=== PATIENT | male | born 1975 | race American Indian/Alaskan Native ===

== ENCOUNTER 2018-12-12 11:47 | Emergency (ER) | payer OTHER ==
--- NOTE | 2018-12-12 12:21 | Event Note ---
ED Screening Note ED Screening Note: pt presents with a cough that began three days ago has mucus production no rhinorrhea, no sore throat +congestion no sick contacts PMHx HIV, Hep B not on antivirals, hasnt taken them in 7 months has not seen an infectious disease doctor in 5 months This initial assessment/diagnostic orders/clinical plan/treatment(s) is/are subject to change based on patients health status, clinical progression and re- assessment by fellow clinical providers in the ED. Further treatment and workup at subsequent clinical providers discretion. Patient/guardian urged not to elope from the ED as their condition may be serious if not clinically assessed and managed. Initial orders include: CXR
[2018-12-12 12:23] VITALS: BP 134/73
--- NOTE | 2018-12-12 13:07 | XRay Report ---
CHEST PA AND LATERAL VIEWS INDICATION: cough. COMPARISON: None FINDINGS: Support devices: None Heart: Normal Lungs/Pleura: No acute pulmonary or pleural findings. IMPRESSION: 1. No significant abnormality. Signer Name: Baldemar Yancey MD Signed: 12/12/2018 1:03 PM Workstation Name: [id number]
[2018-12-12] MEDS ORDERED: DECADRON IM ONE (14:06)
[2018-12-12] MEDS ORDERED: DUONEB *Not for PRN Use IH ONE (14:06)
--- NOTE | 2018-12-12 14:32 | Emergency Department Report ---
- General Chief Complaint: Upper Respiratory Infection Stated Complaint: CHEST/HEAD PAIN/COUGH Time Seen by Provider: 12/12/18 12:19 Source: patient Mode of arrival: Ambulatory Limitations: No Limitations - History of Present Illness Initial Comments: pt is a 43 yo male who presents with a cough that began three days ago. pt states he has mucus production. denies any rhinorrhea, ear pain, fever, or sore throat. endorses congestion. no sick contacts. PMHx HIV, Hep B not on antivirals, hasnt taken them in 7 months. has not seen an infectious disease doctor in 5 months. pt has a PMHx of asthma but states he has not had issues in about 3 years. he does not have an inhaler. - Related Data Previous Rx's Medication Instructions Recorded Last Taken Type Ciprofloxacin HCl [Cipro] 500 mg PO BID #14 tablet 04/11/18 Unknown Rx Loperamide HCl [Imodium A-D] 2 mg PO DAILY #1 box 04/11/18 Unknown Rx Ondansetron [Zofran Odt] 4 mg PO Q8HR PRN #10 tab.rapdis 04/11/18 Unknown Rx ALBUTEROL Inhaler (OR & NICU) 2 puff IH QID PRN #1 inhalation 12/12/18 Unknown Rx [ProAir HFA Inhaler] Doxycycline Hyclate [Doxycycline 100 mg PO BID 7 Days #14 tab 12/12/18 Unknown Rx Hyclate TAB] guaiFENesin ER [Mucinex ER] 600 mg PO BID #14 tablet.er 12/12/18 Unknown Rx predniSONE [Deltasone] 40 mg PO QDAY 7 Days #14 tab 12/12/18 Unknown Rx Allergies Allergy/AdvReac Type Severity Reaction Status Date / Time seafood Allergy Hives Uncoded 04/11/18 14:09 ED Review of Systems ROS: Stated complaint: CHEST/HEAD PAIN/COUGH Other details as noted in HPI Comment: All other systems reviewed and negative ED Past Medical Hx - Past Medical History Previous Medical History?: Yes Hx Asthma: Yes - Surgical History Past Surgical History?: Yes Additional Surgical History: right leg - Social History Smoking Status: Never Smoker Substance Use Type: None - Medications Home Medications: Home Medications Medication Instructions Recorded Confirmed Last Taken Type Ciprofloxacin HCl [Cipro] 500 mg PO BID #14 tablet 04/11/18 Unknown Rx Loperamide HCl [Imodium A-D] 2 mg PO DAILY #1 box 04/11/18 Unknown Rx Ondansetron [Zofran Odt] 4 mg PO Q8HR PRN #10 tab.rapdis 04/11/18 Unknown Rx ALBUTEROL Inhaler (OR & NICU) 2 puff IH QID PRN #1 inhalation 12/12/18 Unknown Rx [ProAir HFA Inhaler] Doxycycline Hyclate [Doxycycline 100 mg PO BID 7 Days #14 tab 12/12/18 Unknown Rx Hyclate TAB] guaiFENesin ER [Mucinex ER] 600 mg PO BID #14 tablet.er 12/12/18 Unknown Rx predniSONE [Deltasone] 40 mg PO QDAY 7 Days #14 tab 12/12/18 Unknown Rx ED Physical Exam - General Limitations: No Limitations General appearance: alert, in no apparent distress - Head Head exam: Present: atraumatic, normocephalic - Eye Eye exam: Present: normal appearance - ENT ENT exam: Present: mucous membranes moist - Respiratory Respiratory exam: Present: wheezes (bilateral bases). Absent: respiratory distress, rales, rhonchi, stridor, chest wall tenderness, accessory muscle use, decreased breath sounds, prolonged expiratory - Cardiovascular Cardiovascular Exam: Present: normal rhythm, tachycardia (mildly ), normal heart sounds. Absent: systolic murmur, diastolic murmur, rubs, gallop - Neurological Exam Neurological exam: Present: alert, oriented X3 - Psychiatric Psychiatric exam: Present: normal affect, normal mood - Skin Skin exam: Present: warm, dry, intact ED Course Vital Signs 12/12/18 12:20 Temperature 99.1 F Pulse Rate 122 H Respiratory 18 Rate Blood Pressure 134/73 [Right] O2 Sat by Pulse 95 Oximetry ED Medical Decision Making - Radiology Data Radiology results: report reviewed CXR: no significant abnormality - Medical Decision Making pt is a 43 yo male who presents with a cough that began three days ago. pt states he has mucus production. denies any rhinorrhea, ear pain, fever, or sore throat. endorses congestion. no sick contacts. PMHx HIV, Hep B not on antivirals, hasnt taken them in 7 months. has not seen an infectious disease doctor in 5 months. pt has a PMHx of asthma but states he has not had issues in about 3 years. he does not have an inhaler. pt with wheezing at the bases. given a duo-neb and dexamethasone states he only received half because of issue with the tubing. pt with continued wheezing given xopenex. wheezing improved. pt will be treated for acute bronchitis/asthma exacerbation. advised pt to please take medication as prescribed. Follow up with a primary care doctor and infectious disease doctor in the next 2-3 days. Return the emergency room immediately for any new or worsening symptoms or if symptoms not improving. pt states he typically sees infectious disease at [facility]. - Differential Diagnosis PNA, URI, viral syndrome, bronchitis, asthma Critical care attestation.: If time is entered above; I have spent that time in minutes in the direct care of this critically ill patient, excluding procedure time. ED Disposition Clinical Impression: Bronchitis Asthma Qualifiers: Asthma severity: unspecified severity Asthma persistence: unspecified Asthma complication type: with acute exacerbation Qualified Code(s): J45.901 - Unspecified asthma with (acute) exacerbation Disposition: TO HOME OR SELFCARE Is pt being admited?: No Does the pt Need Aspirin: No Condition: Stable Instructions: Asthma (ED), Acute Bronchitis (ED) Additional Instructions: Please take medication as prescribed. Follow up with a primary care doctor and infectious disease doctor in the next 2-3 days. Return the emergency room immediately for any new or worsening symptoms or if symptoms not improving. Prescriptions: predniSONE [Deltasone] 40 mg PO QDAY 7 Days #14 tab Doxycycline Hyclate [Doxycycline Hyclate TAB] 100 mg PO BID 7 Days #14 tab guaiFENesin ER [Mucinex ER] 600 mg PO BID #14 tablet.er ALBUTEROL Inhaler (OR & NICU) [ProAir HFA Inhaler] 2 puff IH QID PRN #1 inhalation PRN Reason: Shortness Of Breath Referrals: MILVIA MARTINEZ MD [Primary Care Provider] - 2-3 Days [facility] [Outside] - 2-3 Days [facility] [Outside] - 2-3 Days Time of Disposition: 16:40 Print Language: PORTUGUESE
[2018-12-12] MEDS ORDERED: XOPENEX IH ONE (15:54)
== END 2018-12-12 16:57 | disposition home or self-care (01) ==
LOC: ED 11:47
DX: J45.909 Unspecified asthma, uncomplicated (principal); B19.10 Unspecified viral hepatitis B without hepatic coma; Z21 Asymptomatic human immunodeficiency virus [HIV] infection status; Z79.899 Other long term (current) drug therapy; Z91.013 Allergy to seafood
CPT/HCPCS: 71046; 94640; 96372; 99283; J1100